=== PATIENT | female | born 1995 | race Caucasian/White ===

== ENCOUNTER 2017-10-08 12:58 | Observation (INO) | payer OTHER ==
[2017-10-08 13:15] VITALS: BP 121/70; PULSE 110
[2017-10-08 14:40] LABS: Appearance HAZY (CLEAR); Bilirubin NEGATIVE (NEGATIVE); Glucose NEGATIVE (NEGATIVE); Ketones NEGATIVE (NEGATIVE); Leukocyte Esterase 1+ (NEGATIVE); Nitrite NEGATIVE (NEGATIVE); Protein,Urine Dip TRACE (Negative); Specific Gravity 1.015 (1.005-1.025); Urobilinogen NORMAL mg/dL (0-1)
[2017-10-08 14:52] LABS: Bacteria MODERATE /HPF (NEGATIVE); Epithelial Cells MODERATE /HPF (FEW); Mucus SLIGHT /HPF (NEGATIVE); RBC 0-2 /HPF (0-2)
[2017-10-08 14:53] LABS: Amphetamine,Urine NEGATIVE (NEGATIVE); Barbiturate,Urine NEGATIVE (NEGATIVE); Benzodiazepine,Urine NEGATIVE (NEGATIVE); Cocaine,Urine NEGATIVE (NEGATIVE); Methadone,Urine NEGATIVE (NEGATIVE); Opiate,Urine NEGATIVE (NEGATIVE); PCP,Urine NEGATIVE (NEGATIVE); THC,Urine NEGATIVE (NEGATIVE)
== END 2017-10-08 15:05 | disposition home or self-care (01) ==
LOC: OB 12:58
PROVIDERS: ADMIT Family Medicine; ATTEND Family Medicine
DX: Z34.83 Encounter for supervision of other normal pregnancy, third trimester (principal)
CPT/HCPCS: 80307; 81000; 87086; G0378

== ENCOUNTER 2018-02-15 10:55 | Emergency (ER) | payer OTHER ==
[2018-02-15] MEDS ORDERED: Eye-Stream Solution ONE (11:02)
[2018-02-15] MEDS ORDERED: TETRACAINE 0.5% STERI-UNIT SOL OP ONE (11:02)
[2018-02-15] MEDS ORDERED: Fluor-I-Strip/Ful-Flo OP ONE (11:02)
--- NOTE | 2018-02-15 11:45 | ERPHSYRPT ---
- History of Present Illness Time Seen by Provider: 02/15/18 11:39 Source: patient, family Exam Limitations: no limitations Patient Subjective Stated Complaint: states on the way to work this morning began having sharp pain in left eye. denies any injury. Triage Nursing Assessment: ambulated to room per self. skin w/d, color normal. covering left eye. eye slightly red, no drainage noted. Physician History: The patient is a 22-year-old female with her complaining of left thigh irritation, foreign body feeling, and photophobia that began this morning while driving to work. She denies any injury to the eye or getting a foreign body in it. She does not wear glasses or contacts. She did flush her eye while at work without improvement. Her tells me that one of the children they were with last night woke up this morning with pinkeye her past medical history is unremarkable. Timing/Duration: today Location: left eye Severity: moderate Apparent Injury: no Associated Symptoms: pain, burning, sensitivity to light, redness, foreign body sensation Visual Assistive Devices: None Allergies/Adverse Reactions: No Known Drug Allergies Allergy (Unverified 10/08/17 13:04) Home Medications: Vits W-Ca,Fe,FA(<1Mg) [] 1 each PO DAILY 10/08/17 [History] Hx Tetanus, Diphtheria Vaccination/Date Given: Yes Hx Influenza Vaccination/Date Given: Yes Hx Pneumococcal Vaccination/Date Given: No Immunizations Up to Date: No - Review of Systems Constitutional: No Fever, No Chills Eyes: Eye Redness, Itchy, Photophobia, Foreign Body Sensation Ears, Nose, & Throat: No Symptoms Respiratory: No Cough, No Dyspnea Cardiac: No Chest Pain, No Edema, No Syncope Abdominal/Gastrointestinal: No Abdominal Pain, No Nausea, No Vomiting, No Diarrhea Genitourinary Symptoms: No Dysuria Musculoskeletal: No Back Pain, No Neck Pain Skin: No Rash Neurological: No Dizziness, No Focal Weakness, No Sensory Changes Psychological: No Symptoms Endocrine: No Symptoms Hematologic/Lymphatic: No Symptoms Immunological/Allergic: No Symptoms All Other Systems: Reviewed and Negative - Past Medical History Pertinent Past Medical History: No - Past Surgical History Past Surgical History: Yes Musculoskeletal: Orthopedic Surgery - Social History Smoking Status: Never smoker Exposure to second hand smoke: No Drug Use: none Patient Lives Alone: No - Female History Hx Now: No (2 months , on bc) - Nursing Vital Signs Nursing Vital Signs: Initial Vital Signs Temperature 97.7 F 02/15/18 10:59 Pulse Rate 85 02/15/18 10:59 Respiratory Rate 16 02/15/18 10:59 Blood Pressure 128/91 02/15/18 10:59 O2 Sat by Pulse Oximetry 97 02/15/18 10:59 Pain Scale Pain Intensity 8 - Physical Exam General Appearance: no apparent distress Eye Exam: right eye: conjunctival inflammation, other (fluorocein stain neg for corneal abrasion, no FB seen), left eye: normal inspection, PERRL Ears, Nose, Throat Exam: normal ENT inspection Neck Exam: normal inspection Respiratory Exam: normal breath sounds Cardiovascular Exam: regular rate/rhythm Gastrointestinal Exam: soft Extremity Exam: normal inspection Neurologic: alert, oriented x 3 Skin Exam: normal color SpO2 Interpretation: normal SpO2: 97 Oxygen Delivery: Room Air Ordered Tests: Medication Summary Discontinued Medications Generic Name Dose Route Start Last Admin Trade Name Eugeneq PRN Reason Stop Dose Admin Eye Irrigation Solution Confirm 02/15/18 11:02 Eye-Stream Solution Administered 02/15/18 11:03 Dose 30 ml .ROUTE .STK-MED ONE Fluorescein Sodium Confirm 02/15/18 11:02 [id number]/Ful-Joey Administered 02/15/18 11:03 Dose 1 mg OP .STK-MED ONE Tetracaine HCl Confirm 02/15/18 11:02 Tetracaine 0.5% Steri-Unit Soraya Administered 02/15/18 11:03 Dose 4 ml OP .STK-MED ONE - Progress Progress: unchanged Counseled pt/family regarding: diagnosis - Departure Time of Disposition: 11:42 Departure Disposition: Home Clinical Impression: Viral conjunctivitis of left eye Condition: Stable Critical Care Time: No Referrals: BLAYNE ERNST [Primary Care Provider] - Additional Instructions: You have conjunctivitis in your left eye. Use a 1/2 inch ribbon of the Tobradex ointment applied under the lower left eyelid 2 times a day for 7 days. If the condition worsens significantly, please see an electronic commerce specialist. Prescriptions: Tobramycin Sulf/Dexamethasone [Tobradex Eye Ointment] 3.5 gm OP BID #1 oint...g.
[2018-02-15] MEDS: TETRACAINE 0.5% STERI-UNIT SOL OP STA (12:00)
[2018-02-15] MEDS: Fluor-I-Strip/Ful-Flo OP ONE (12:00)
[2018-02-15] MEDS: Eye-Stream Solution OP ONE (12:01)
[2018-02-15 12:02] VITALS: BP 122/76; PULSE 76; O2SAT 99
== END 2018-02-15 12:01 | disposition home or self-care (01) ==
LOC: ED 10:55
DX: B30.9 Viral conjunctivitis, unspecified (principal)
CPT/HCPCS: 99283; A9270-GY